=== PATIENT | male | born 1975 | race African-American/Black ===

== ENCOUNTER 2017-06-19 17:30 | Emergency (ER) | payer OTHER ==
[~2017-06-19] VITALS: Ht 177.8 cm; Wt 95.5 kg
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
[2017-06-19 19:26] VITALS: BP 110/65; PULSE 75; RESP 20; O2SAT 97
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
== END 2017-06-19 20:13 | disposition home or self-care (01) ==
LOC: NEDAMB 17:30 → NEPD 20:13
DX: S39.012A Strain of muscle, fascia and tendon of lower back, initial encounter (principal); Z88.0 Allergy status to penicillin; V43.62XA Car passenger injured in collision with other type car in traffic accident, initial encounter
CPT/HCPCS: 72100; 99283

== ENCOUNTER 2017-09-05 07:39 | Emergency (ER) | payer SELFPAY ==
[~2017-09-05] VITALS: Ht 177.8 cm; Wt 95.0 kg
[2017-09-05 07:40] VITALS: BP 121/77; PULSE 76; RESP 15; TEMP 98.4; O2SAT 95
--- NOTE | 2017-09-05 08:47 | PD ---
HPI Chief Complaint: Head Injury Time Seen by Provider: 09:29 Travel History International Travel<30 days: No Contact w/Intl Traveler<30days: No Traveled to known affect area: No History of Present Illness HPI 41-year-old male presents to emergency department with head, neck, and low back pain after slipping in the shower last night. Patient states that he slipped on some soap in the tub and hit his head, neck, and back. States that he had a headache last night. Patient denies loss of consciousness, blurred vision, personality changes, nausea, vomiting, diarrhea, fever, chills. Patient also denies loss of bowel or bladder function, numbness, tingling, weakness, personal history of present cancer, IV drug use. Patient says that his low back pain is moderate, aching, midline, and increases when he moves his back. His neck pain is mild, aching, increases with movement. Has full range of motion of his neck. He is not taking anything to relieve his pain today. [facility] Past Medical History Medical History: Denies Significant Hx Diminished Hearing: No Immunizations Current: No Influenza Vaccination: No Past Surgical History Surgical History: No Previous Surgery Social History Alcohol Use: Yes (RARELY) Tobacco Use: No Substance Use: No Allergies-Medications (Allergen,Severity, Reaction): Coded Allergies: penicillin G (Unverified Allergy, Severe, CONVULSIONS, 09/05/17) Reported Meds & Prescriptions Reported Meds & Active Scripts Active No Active Prescriptions or Reported Medications Review of Systems Except as stated in HPI: all other systems reviewed are Neg Physical Exam Narrative GENERAL: Well-developed well-nourished in no apparent distress SKIN: Focused skin assessment warm/dry. HEAD: Atraumatic. Normocephalic. EYES: Pupils equal and round. No scleral icterus. No injection or drainage. NECK: Supple, nontender. No meningeal signs. Trachea midline. No JVD or lymphadenopathy. No midline tenderness. ENT: No nasal bleeding or discharge. Mucous membranes pink and moist. NECK: Trachea midline. No JVD. CARDIOVASCULAR: Regular rate and rhythm. No murmur appreciated. RESPIRATORY: No accessory muscle use. Clear to auscultation. Breath sounds equal bilaterally. GASTROINTESTINAL: Abdomen soft, non-tender, nondistended. Hepatic and splenic margins not palpable. MUSCULOSKELETAL: No obvious deformities. No clubbing. No cyanosis. No edema. BACK: No CVA tenderness. No rash. Point tenderness on palpation of the lumbar spine. NEUROLOGICAL: Awake and alert. No obvious cranial nerve deficits. Motor grossly within normal limits. Normal speech. PSYCHIATRIC: Appropriate mood and affect; insight and judgment normal. Data Data Last Documented VS Vital Signs Date Time Temp Pulse Resp B/P (MAP) Pulse Ox O2 Delivery O2 Flow Rate FiO2 09/05/17 09:47 09/05/17 07:40 98.4 76 15 95 Orders Orders Spine, Lumbar - Ltd (Ap & Lat) (09/05/17 ) Spine, Cervical - Ltd (Ap&Lat) (09/05/17 ) Ed Discharge Order (09/05/17 09:31) MDM Medical Decision Making Medical Screen Exam Complete: Yes Emergency Medical Condition: Yes Differential Diagnosis Neck sprain versus strain versus fracture Back sprain versus strain versus fracture Head contusion versus concussion versus fracture Narrative Course 41-year-old male presents to emergency department with head, neck, and low back pain after slipping in the shower last night. Patient states that he slipped on some soap in the tub and hit his head, neck, and back. States that he had a headache last night. Patient denies loss of consciousness, blurred vision, personality changes, nausea, vomiting, diarrhea, fever, chills. Patient also denies loss of bowel or bladder function, numbness, tingling, weakness, personal history of present cancer, IV drug use. Patient says that his low back pain is moderate, aching, midline, and increases when he moves his back. His neck pain is mild, aching, increases with movement. Has full range of motion of his neck. He is not taking anything to relieve his pain today. Physical exam findings: Neuro intact, TTP to lumbar region, no TTP to neck but pain with ROM. Used [place] head CT rules to defer head CT. Imaging studies: No acute process. Pt advised to use OTC motrin or tylenol for symptom relief. Pt to f/u with PCP within 2 days and return if symptoms persist or worsen. Pt understood and agreed with plan. Diagnosis Primary Impression: Head contusion Qualified Codes: S00.83XA - Contusion of other part of head, initial encounter Additional Impressions: Neck contusion Qualified Codes: S10.93XA - Contusion of unspecified part of neck, initial encounter Back contusion Qualified Codes: S20.229A - Contusion of unspecified back wall of thorax, initial encounter Referrals: Primary Care Physician Additional Instructions: Return to primary care physician within 2 days. If your symptoms persist or worsen or return to the emergency department Perform light stretches of the lower back and legs, and alternate heat and ice packs. If you develop increased pain, weakness, fever, chills, or bowel or bladder issues, return to the ED for further treatment and evaluation. Follow up with your primary care physician in 2-3 days. Scripts No Active Prescriptions or Reported Meds Disposition: 01 DISCHARGE HOME Condition: Stable Lynnette Tyler Sep 05, 2017 08:47
--- NOTE | 2017-09-05 09:17 | RADRPT ---
EXAM DATE/TIME: 09/05/2017 08:46 [facility] COMPARISON: No previous studies available for comparison. INDICATIONS : Neck and low back pain, fell in shower yesterday MEDICAL HISTORY : SURGICAL HISTORY : None. ENCOUNTER: Initial ACUITY: 1 day PAIN SCORE: 7/10 LOCATION: Bilateral neck and low back FINDINGS: Two projection examination was performed. There is normal alignment and curvature of the vertebral b odies down to the level of C7. No evidence of fracture or subluxation. Vertebral body height is lj ntained. The disc spaces are maintained. Mild anterior osteophytes are seen at C6-C7. The atlanto- axial articulation is intact. CONCLUSION: Negative, complete series may be of benefit if patient remains symptomatic. Tristian Peñaloza MD FACR on September 05, 2017 at 9:14 Board Certified Radiologist. This report was verified electronically.
--- NOTE | 2017-09-05 09:18 | RADRPT ---
EXAM DATE/TIME: 09/05/2017 08:54 [facility] COMPARISON: SPINE LUMBAR LTD (AP & LAT), June 19, 2017, 19:03. INDICATIONS : Neck and low back pain, fell in shower yesterday MEDICAL HISTORY : None. SURGICAL HISTORY : None. ENCOUNTER: Initial ACUITY: 1 day PAIN SCORE: 7/10 LOCATION: Bilateral neck and low back FINDINGS: Two view examination was performed. There are five non-rib bearing vertebral bodies. The vertebral bodies are in normal alignment without evidence of subluxation or scoliosis. The disc spaces are lj ntained. The pedicles are intact. Bony mineralization is normal. No fracture is identified. CONCLUSION: Negative acute process. Tristian Peñaloza MD FACR on September 05, 2017 at 9:15 Board Certified Radiologist. This report was verified electronically.
== END 2017-09-05 09:47 | disposition home or self-care (01) ==
LOC: NEPD 07:39
DX: S00.83XA Contusion of other part of head, initial encounter (principal); S10.93XA Contusion of unspecified part of neck, initial encounter; S20.229A Contusion of unspecified back wall of thorax, initial encounter; W18.2XXA Fall in (into) shower or empty bathtub, initial encounter; Y93.E1 Activity, personal bathing and showering
CPT/HCPCS: 72040; 72100; 99283

== ENCOUNTER 2017-09-24 10:21 | Emergency (ER) | payer SELFPAY ==
[~2017-09-24] VITALS: Ht 177.8 cm; Wt 95.0 kg
[2017-09-24 10:22] VITALS: BP 130/72; PULSE 88; RESP 16; TEMP 97.6; O2SAT 98
--- NOTE | 2017-09-24 11:57 | PD ---
HPI Chief Complaint: Fall Time Seen by Provider: 11:33 Travel History International Travel<30 days: No Contact w/Intl Traveler<30days: No Traveled to known affect area: No History of Present Illness HPI 41-year-old Afro-[place] male presents the emergency department status post slip and fall while walking on the street. Patient states he slipped on a wet curb after sprinklers came on, fell backwards hitting the posterior scalp. He is unsure if he had a loss of consciousness but reports that his friend thought he was out for a little while. The patient originally had some nausea and dizziness as well as on one episode of vomiting. Patient did have headache that was worse earlier but now is about a 6 out of 10. He is not requesting pain medication at this time. He has some mild neck tenderness as well. Patient denies any other injury. No tongue or tooth injury. He is allergic to penicillin. PFSH Past Medical History Medical History: Denies Significant Hx Diminished Hearing: No Immunizations Current: No Tetanus Vaccination: < 5 Years Influenza Vaccination: No Past Surgical History Surgical History: No Previous Surgery Social History Alcohol Use: Yes (RARELY) Tobacco Use: No Substance Use: No Allergies-Medications (Allergen,Severity, Reaction): Coded Allergies: penicillin G (Unverified Allergy, Severe, CONVULSIONS, 09/24/17) Reported Meds & Prescriptions Reported Meds & Active Scripts Active No Active Prescriptions or Reported Medications Review of Systems Except as stated in HPI: all other systems reviewed are Neg General / Constitutional: No: Fever Eyes: No: Visual changes HENT: No: Headaches Cardiovascular: No: Chest Pain or Discomfort Respiratory: No: Shortness of Breath Gastrointestinal: No: Abdominal Pain Genitourinary: No: Dysuria Musculoskeletal: No: Pain Skin: No Rash Neurologic: No: Weakness Psychiatric: No: Depression Endocrine: No: Polydipsia Hematologic/Lymphatic: No: Easy Bruising Physical Exam Narrative GENERAL: Patient appears in no acute distress. SKIN: Warm and dry. Normal color. Normal turgor. There is no open wounds or abrasions HEAD:. Normocephalic. Patient has [id number] tenderness in the posterior scalp without signs of abrasion or laceration EYES: Pupils equal and round. No scleral icterus. No injection or drainage. ENT: No nasal bleeding or discharge. Mucous membranes pink and moist. No buccal membrane or tongue injury. No dental injury. Pharynx is clear. Airway is patent. NECK: Trachea midline. No significant bony tenderness or step-off. Mild soft tissue tenderness. Range of motion is full without tenderness. C-spine is cleared utilizing nexus criteria. CARDIOVASCULAR: Regular rate and rhythm. RESPIRATORY: No accessory muscle use. Clear to auscultation. Breath sounds equal bilaterally. GASTROINTESTINAL: Abdomen soft, non-tender, nondistended. Hepatic and splenic margins not palpable. MUSCULOSKELETAL: Extremities without clubbing, cyanosis, or edema. No obvious deformities. NEUROLOGICAL: Awake and alert. No obvious cranial nerve deficits. Motor grossly within normal limits. Five out of 5 muscle strength in the arms and legs. Normal speech. PSYCHIATRIC: Appropriate mood and affect; insight and judgment normal. Data Data Last Documented VS Vital Signs Date Time Temp Pulse Resp B/P (MAP) Pulse Ox O2 Delivery O2 Flow Rate FiO2 09/24/17 11:29 Room Air 09/24/17 10:22 97.6 88 16 130/72 (91) [address] Brain W/O Iv Contrast(Rout) (09/24/17 11:39) [facility] Medical Decision Making Medical Screen Exam Complete: Yes Emergency Medical Condition: Yes Differential Diagnosis Slipped and fall. Concussion. Intracranial bleed. Narrative Course CT scan of the brain is ordered. CT scan is read as negative per radiologist. Patient is to take Tylenol and ibuprofen as needed and follow-up as needed. Head injury warnings are reviewed with the patient. Diagnosis Primary Impression: Fall (on)(from) sidewalk curb, initial encounter Additional Impression: Head injury, closed, with brief LOC Referrals: Primary Care Physician Patient Instructions: Concussion (ED), General Instructions, Head Injury (DC) Additional Instructions: CT scan is read as negative per radiologist. Patient is to take Tylenol and ibuprofen as needed and follow-up as needed. Head injury warnings are reviewed with the patient. Med/Other Pt SpecificInfo: No Meds Exist/No RX given Scripts No Active Prescriptions or Reported Meds Disposition: 01 DISCHARGE HOME Condition: Stable Jose Eduardo Bhakta Sep 24, 2017 11:57
--- NOTE | 2017-09-24 12:11 | RADRPT ---
EXAM DATE/TIME: 09/24/2017 11:43 [facility] COMPARISON: No previous studies available for comparison. INDICATIONS : Trauma, fall today. RADIATION DOSE: 56.35 CTDIvol (mGy) MEDICAL HISTORY : None SURGICAL HISTORY : None. ENCOUNTER: Initial ACUITY: 1 day PAIN SCALE: 8/10 LOCATION: Bilateral head TECHNIQUE: Multiple contiguous axial images were obtained of the head. Using automated exposure control and adj ustment of the mA and/or kV according to patient size, radiation dose was kept as low as reasonably a chievable to obtain optimal diagnostic quality images. DICOM format image data is available electro nically for review and comparison. FINDINGS: CEREBRUM: The ventricles are normal for age. No evidence of midline shift, mass lesion, hemorrhage or acute in farction. No extra-axial fluid collections are seen. POSTERIOR FOSSA: The cerebellum and brainstem are intact. The 4th ventricle is midline. The cerebellopontine angle i s unremarkable. EXTRACRANIAL: The visualized portion of the orbits is intact. SKULL: The calvaria is intact. No evidence of skull fracture. CONCLUSION: Normal examination for a patient of this age. Jeff Damian MD on September 24, 2017 at 12:09 Board Certified Radiologist. This report was verified electronically.
== END 2017-09-24 12:48 | disposition home or self-care (01) ==
LOC: NEPC 10:21
DX: S06.9X1A Unspecified intracranial injury with loss of consciousness of 30 minutes or less, initial encounter (principal); W01.198A Fall on same level from slipping, tripping and stumbling with subsequent striking against other object, initial encounter; Y93.01 Activity, walking, marching and hiking; Y92.410 Unspecified street and highway as the place of occurrence of the external cause
CPT/HCPCS: 70450; 99284

== ENCOUNTER 2017-09-28 20:42 | Emergency (ER) | payer SELFPAY ==
[2017-09-28 20:44] VITALS: BP 148/87; PULSE 87; RESP 16; TEMP 97.9; O2SAT 98
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
[2017-09-29 00:09] VITALS: BP 115/76; PULSE 78; RESP 16; O2SAT 98
--- NOTE | 2017-09-29 01:53 | PD ---
HPI Chief Complaint: Head Injury Time Seen by Provider: 00:16 Travel History International Travel<30 days: No Contact w/Intl Traveler<30days: No Traveled to known affect area: No History of Present Illness HPI pt dropped a 5 lbs weight that slipped off the bar of bench press bar- 5 lbs hit him in the left religion area . Now blood in the ear canal and pain, No vertigo , no visual changes took nothing for the pain , the event happened 3 hrs prior to presentation in ER . When he saw blood he decide to come to see MD . Denies coagulopathy Hx , pain localized to left ear area , no radiation , it is a dull pressure like pain PFSH Past Medical History Medical History: Denies Significant Hx Diminished Hearing: No Immunizations Current: No Influenza Vaccination: No Past Surgical History Surgical History: No Previous Surgery Social History Alcohol Use: Yes (RARELY) Tobacco Use: No Substance Use: No Allergies-Medications (Allergen,Severity, Reaction): Coded Allergies: penicillin G (Unverified Allergy, Severe, CONVULSIONS, 09/29/17) Reported Meds & Prescriptions Reported Meds & Active Scripts Active Tramadol (Tramadol HCl) 50 Mg Tab 50 Mg PO Q4H PRN Ibuprofen 600 Mg Tab 600 Mg PO Q6H PRN Clindamycin (Clindamycin HCl) 150 Mg Cap 150 Mg PO Q6H Review of Systems Except as stated in HPI: all other systems reviewed are Neg HENT: Positive: Earache, Other (blood in external left ear canal) Physical Exam Narrative GENERAL: no apparent distress , no swelling to his face SKIN: Warm and dry. HEAD: Atraumatic. Normocephalic. EYES: Pupils equal and round. No scleral icterus. No injection or drainage. ENT: left external canal has Bright red blood from the wall of external canal , I placed q-tip into canal to remove blood , then I placed a white kleenex into the canal to look for a halo sign to look for CSF mixed with blood .There was no sign of halo below the blood on tip of the Kleenex tissue. NECK: Trachea midline. No JVD. CARDIOVASCULAR: Regular rate and rhythm. RESPIRATORY: No accessory muscle use. Clear to auscultation. Breath sounds equal bilaterally. GASTROINTESTINAL: Abdomen soft, non-tender, nondistended. Hepatic and splenic margins not palpable. MUSCULOSKELETAL: Extremities without clubbing, cyanosis, or edema. No obvious deformities. NEUROLOGICAL: Awake and alert. No obvious cranial nerve deficits. Motor grossly within normal limits. Five out of 5 muscle strength in the arms and legs. Normal speech. PSYCHIATRIC: Appropriate mood and affect; insight and judgment normal. Data Data Last Documented VS Vital Signs Date Time Temp Pulse Resp B/P (MAP) Pulse Ox O2 Delivery O2 Flow Rate FiO2 09/29/17 02:06 09/29/17 00:09 78 16 98 Room Air 09/28/17 20:[address] Brain W/O Iv Contrast(Rout) (09/28/17 ) Clindamycin (Cleocin) (09/29/17 02:00) Acetaminophen (Tylenol) (09/29/17 02:00) Ed Discharge Order (09/29/17 01:59) [facility] Medical Decision Making Medical Screen Exam Complete: Yes Emergency Medical Condition: Yes Differential Diagnosis Ear canal trauma , vs bleedng from temporal bone fracture and csf leak, Narrative Course I reviewed CT reading with the Radiologist to focus on the left temoral bone and ear canal , he feels there is no sign of temporal bone fracture, I placed Tissue into the blood from the Left external canal to look for a Halo sign of clear CSF around the Bright blood. there is no halo sign and only bright red blood obn the tissue . I place patient on clindamycin prophylaxis for 5 days . and motrin and tramdol for pain Diagnosis Primary Impression: Ear ache Additional Impression: Head injury Patient Instructions: Earache (ED), General Instructions, Head Injury (ED) Scripts Tramadol (Tramadol) 50 Mg Tab 50 MG PO Q4H Y for PAIN, #6 TAB 0 Refills Prov: Benny Graham MD 09/29/17 Ibuprofen (Ibuprofen) 600 Mg Tab 600 MG PO Q6H Y for PAIN, #20 TAB 0 Refills Prov: Benny Graham MD 09/29/17 Clindamycin (Clindamycin) 150 Mg Cap 150 MG PO Q6H for Infection, #20 CAP 0 Refills Prov: Benny Graham MD 09/29/17 Disposition: 01 DISCHARGE HOME Condition: Good Benny Graham MD Sep 29, 2017 01:53
[2017-09-29] MEDS ORDERED: CLIN150C14 PO (01:57)
[2017-09-29] MEDS ORDERED: IBUP-232 PO (01:57)
[2017-09-29] MEDS ORDERED: TRAM50TA PO (01:58)
[2017-09-29] MEDS ORDERED: CLINDAMYCIN 150 MG CAP PO ONE (02:00)
[2017-09-29] MEDS ORDERED: ACETAMINOPHEN 500 MG CPLT PO ONE (02:00)
== END 2017-09-29 02:34 | disposition home or self-care (01) ==
LOC: NEPC 20:42
DX: S09.90XA Unspecified injury of head, initial encounter (principal); H92.02 Otalgia, left ear; W20.8XXA Other cause of strike by thrown, projected or falling object, initial encounter; Y93.79 Activity, other specified sports and athletics; Y92.39 Other specified sports and athletic area as the place of occurrence of the external cause
CPT/HCPCS: 70450

== ENCOUNTER 2017-11-22 19:57 | Emergency (ER) | payer SELFPAY ==
[~2017-11-22 19:57] MED LIST: CLIN150C14 PO; IBUP-232 PO; TRAM50TA PO
[2017-11-22 20:36] VITALS: BP 103/66; PULSE 80; RESP 20; TEMP 97; O2SAT 98
--- NOTE | 2017-11-22 22:53 | PD ---
HPI Chief Complaint: ENT Complaint Time Seen by Provider: 22:31 Travel History International Travel<30 days: No Contact w/Intl Traveler<30days: No Traveled to known affect area: No History of Present Illness HPI 41yo M with no significant PMH presents to the ED with c/o possible foreign body in right ear. Said he had his head phones in his ear and the metal piece may have been in there. However, said it may have may out as well but he thinks that it scratch his ear if it did come out. Pt wants to make sure. Denies any fever, chest pain, sob, n/v, abdominal pain, focal weakness or numbness. PFSH Past Medical History Medical History: Denies Significant Hx Diminished Hearing: No Immunizations Current: No Tetanus Vaccination: < 5 Years Influenza Vaccination: No Past Surgical History Surgical History: No Previous Surgery Social History Alcohol Use: No Tobacco Use: No Substance Use: No Allergies-Medications (Allergen,Severity, Reaction): Coded Allergies: penicillin G (Unverified Allergy, Severe, CONVULSIONS, 11/22/17) Reported Meds & Prescriptions Reported Meds & Active Scripts Active No Active Prescriptions or Reported Medications Review of Systems Except as stated in HPI: all other systems reviewed are Neg Physical Exam Narrative GENERAL: 41yo M not in distress. SKIN: Focused skin assessment warm/dry. ENT: Right ear: TM wnl. No foreign body. No bleeding. Left ear: TM wnl. NECK: Trachea midline. No JVD. CARDIOVASCULAR: Regular rate and rhythm. No murmur appreciated. RESPIRATORY: No accessory muscle use. Clear to auscultation. Breath sounds equal bilaterally. GASTROINTESTINAL: Abdomen soft, non-tender, nondistended. MUSCULOSKELETAL: No obvious deformities. No clubbing. No cyanosis. No edema. NEUROLOGICAL: Awake and alert. No obvious cranial nerve deficits. Motor grossly within normal limits. Normal speech. PSYCHIATRIC: Appropriate mood and affect; insight and judgment normal. Data Data Last Documented VS Vital Signs Date Time Temp Pulse Resp B/P (MAP) Pulse Ox O2 Delivery O2 Flow Rate FiO2 11/22/17 20:36 97.0 80 20 103/66 (78) 98 MDM Medical Decision Making Medical Screen Exam Complete: Yes Emergency Medical Condition: Yes Differential Diagnosis Possible foreign body in right ear Narrative Course 41yo M here for evaluation for possible foreign body in right ear. There is no foreign body seen on exam. Pt said he does not want anything medication for pain. Return precautions given. Diagnosis Primary Impression: Routine medical exam Patient Instructions: General Instructions Departure Forms: Tests/Procedures Additional Instructions: Please follow up with your primary care physician in 3-7 days. Return to the ED if symptoms worsen. Med/Other Pt SpecificInfo: No Change to Meds Scripts No Active Prescriptions or Reported Meds Disposition: 01 DISCHARGE HOME Condition: Stable Anna Arroyo DO Nov 22, 2017 22:52
== END 2017-11-22 23:08 | disposition home or self-care (01) ==
LOC: PHED 19:57
DX: Z03.89 Encounter for observation for other suspected diseases and conditions ruled out (principal)
CPT/HCPCS: 99281

== ENCOUNTER 2017-11-24 19:15 | Emergency (ER) | payer SELFPAY ==
[~2017-11-24] VITALS: Ht 165.1 cm; Wt 75.0 kg
[2017-11-24 19:17] VITALS: BP 137/81; PULSE 85; RESP 16; TEMP 98; O2SAT 99
--- NOTE | 2017-11-24 20:03 | PD ---
HPI Chief Complaint: Fall Time Seen by Provider: 19:55 Travel History International Travel<30 days: No Contact w/Intl Traveler<30days: No Traveled to known affect area: No History of Present Illness HPI 41-year-old Afro[place] male presents the emergency department status post slip and fall 45 minutes prior to arrival. She states she slipped off a curb and hit the back of his head. He denies loss of consciousness. He does have a mild headache of 6 out of 10. He is concerned that she's had some bright spots in his vision. He denies nausea, vomiting, or other symptoms. He has no open wound or abrasions. He denies neck pain. He has no numbness or tingling in the upper extremities. He denies any other injury. He is allergic to penicillin. [facility] Past Medical History Diminished Hearing: No Immunizations Current: No Social History Alcohol Use: No Tobacco Use: No Substance Use: No Allergies-Medications (Allergen,Severity, Reaction): Coded Allergies: penicillin G (Unverified Allergy, Severe, CONVULSIONS, 11/24/17) Reported Meds & Prescriptions Reported Meds & Active Scripts Active No Active Prescriptions or Reported Medications Review of Systems Except as stated in HPI: all other systems reviewed are Neg General / Constitutional: No: Fever Eyes: Positive: Other, No: Diploplia, Blurred Vision, Photophobia, Drainage, Redness, Foreign Body Sensation, Pain, Tearing, Blind Spots, Visual changes, Blindness HENT: Positive: Headaches (see history of present illness), No: Vertigo ( 6 out of 10.), Lightheadedness, Sore Throat, Rhinitis, Rhinorrhea, Congestion, Nosebleed, Neck Stiffness, Neck Pain, Dental Difficulties, Earache Cardiovascular: No: Chest Pain or Discomfort Respiratory: No: Cough, Shortness of Breath Gastrointestinal: No: Nausea, Vomiting, Diarrhea, Abdominal Pain Genitourinary: No: Dysuria Musculoskeletal: No: Pain Skin: No Rash Neurologic: No: Weakness Psychiatric: No: Depression Endocrine: No: Polydipsia Hematologic/Lymphatic: No: Easy Bruising Physical Exam Narrative GENERAL: Patient is in no acute distress. SKIN: Warm and dry. Normal color. Normal turgor. There is no abrasions or wounds. HEAD: Patient complains of mild tenderness with palpation of the posterior occiput. There is no significant swelling or bony tenderness. Normocephalic. EYES: Pupils equal and round. No scleral icterus. No injection or drainage. Ocular motions are full and equal bilaterally without nystagmus. ENT: No nasal bleeding or discharge. Mucous membranes pink and moist. No dental injury. Posterior pharynx is unremarkable. Airway is patent TMs are clear bilaterally. NECK: Trachea midline. No bony tenderness or step-off. Range of motion is full and nontender. CARDIOVASCULAR: Regular rate and rhythm. RESPIRATORY: No accessory muscle use. Clear to auscultation. Breath sounds equal bilaterally. GASTROINTESTINAL: Abdomen soft, non-tender, nondistended. Hepatic and splenic margins not palpable. MUSCULOSKELETAL: Extremities without clubbing, cyanosis, or edema. No obvious deformities. Range of motion in both upper and lower extremities are full and within normal limits. NEUROLOGICAL: Awake and alert. No obvious cranial nerve deficits. Motor grossly within normal limits. Five out of 5 muscle strength in the arms and legs. Normal speech. Normal nose finger testing. PSYCHIATRIC: Appropriate mood and affect; insight and judgment normal. Data Data Last Documented VS Vital Signs Date Time Temp Pulse Resp B/P (MAP) Pulse Ox O2 Delivery O2 Flow Rate FiO2 11/24/17 19:17 98.0 85 16 137/81 (99) 99 Room Air MDM Medical Decision Making Medical Screen Exam Complete: Yes Emergency Medical Condition: Yes Differential Diagnosis Supple fall. Scalp contusion. Head injury. Narrative Course A medical screening exam was performed: At the time of evaluation the presenting medical condition was determined not to be of an emergent nature. The patient was given the option of receiving additional care, but declined. Patient was given options for additional community resources from which to obtain care. The Patient Has Been advised to seek medical attention for their presenting complaint. The patient has been advised to return to the ER at any time if an emergent condition develops. Scripts No Active Prescriptions or Reported Meds Condition: Stable Jose Eduardo Bhakta Nov 24, 2017 20:03
== END 2017-11-24 20:11 | disposition left against medical advice (07) ==
LOC: NEPK 19:15
DX: S09.90XA Unspecified injury of head, initial encounter (principal)
CPT/HCPCS: 99281

== ENCOUNTER 2017-12-07 18:26 | Emergency (ER) | payer SELFPAY ==
[~2017-12-07] VITALS: Ht 177.8 cm; Wt 97.5 kg
[2017-12-07 18:27] VITALS: BP 127/72; PULSE 84; RESP 18; TEMP 98.2; O2SAT 98
--- NOTE | 2017-12-07 19:43 | PD ---
HPI Chief Complaint: Fall Time Seen by Provider: 19:14 Travel History International Travel<30 days: No Contact w/Intl Traveler<30days: No Traveled to known affect area: No History of Present Illness HPI 42-year-old male that presents to the ED for evaluation of injury to his head. Per patient is happened about 45 minutes before coming. Per patient he was on a curb and he was cutting a see some friends when he accidentally fell. Per patient and his friends told him that he might have lost consciousness. Unclear as to the length of time as patient himself does not know what per patient he was possibly for a minute. Per patient he vomited after the accident. He does not remember much of it and states that he only has pain on the back of his head. He denies any other injury. No blurry vision or double vision. Normal leg pain. No back or neck pain. No urinary or bowel movement issues. States that he has an allergy to penicillin. States that his pain is 5 out of 10. No other medical issues at this time. PFSH Past Medical History Medical History: Denies Significant Hx Diminished Hearing: No Immunizations Current: Yes Past Surgical History Surgical History: No Previous Surgery Social History Alcohol Use: No Tobacco Use: No Substance Use: No Allergies-Medications (Allergen,Severity, Reaction): Coded Allergies: penicillin G (Unverified Allergy, Severe, CONVULSIONS, 11/24/17) Reported Meds & Prescriptions Reported Meds & Active Scripts Active No Active Prescriptions or Reported Medications Review of Systems Except as stated in HPI: all other systems reviewed are Neg Physical Exam Narrative GENERAL: SKIN: Warm and dry. HEAD: Atraumatic. Normocephalic. EYES: Pupils equal and round 2mm reactive to light and accomodation. No scleral icterus. No injection or drainage. ENT: No nasal bleeding or discharge. Mucous membranes pink and moist. NECK: Trachea midline. No JVD. CARDIOVASCULAR: Regular rate and rhythm. RESPIRATORY: No accessory muscle use. Clear to auscultation. Breath sounds equal bilaterally. GASTROINTESTINAL: Abdomen soft, non-tender, nondistended. Hepatic and splenic margins not palpable. MUSCULOSKELETAL: Extremities without clubbing, cyanosis, or edema. No obvious deformities. Full range of motion of the upper and lower extremities bilaterally. 2+ pulses bilaterally. No lumbar, thoracic, cervical spine tenderness to palpation. Sensation intact bilaterally. Gait normal. NEUROLOGICAL: Awake and alert. No obvious cranial nerve deficits. Motor grossly within normal limits. Five out of 5 muscle strength in the arms and legs. Normal speech. PSYCHIATRIC: Appropriate mood and affect; insight and judgment normal. Data Data Last Documented VS Vital Signs Date Time Temp Pulse Resp B/P (MAP) Pulse Ox O2 Delivery O2 Flow Rate FiO2 12/07/17 18:27 98.2 84 18 127/72 (90) 98 Room Air Orders Orders Ct Brain W/O Iv Contrast(Rout) (12/07/17 ) MDM Medical Decision Making Medical Screen Exam Complete: Yes Emergency Medical Condition: Yes Medical Record Reviewed: Yes Interpretation(s) CT of the head was negative for acute disease. Differential Diagnosis Head injury versus concussion versus minor head injury versus head bleed versus fracture Narrative Course 42-year-old male that presents to the ED for evaluation of head injury. Patient was properly examined and was found to have signs and symptoms consistent appears to be minor head injury. CT was ordered by triage. CT was done and was negative for acute disease. Patient was reassured. At this time I recommend trial of anti-inflammatories and follow-up with PCP. See ED worsening symptoms. Ice or warm compresses as needed. Diagnosis Primary Impression: Head injury, acute Qualified Codes: S09.90XA - Unspecified injury of head, initial encounter Patient Instructions: General Instructions Additional Instructions: Take medications as prescribed. Follow-up with PCP. See ED for any worsening symptoms. Apply ice or heat as needed for pain Med/Other Pt SpecificInfo: Prescription(s) given Scripts No Active Prescriptions or Reported Meds Disposition: 01 DISCHARGE HOME Condition: Stable Ernesto Maldonado Dec 07, 2017 19:43
--- NOTE | 2017-12-07 19:44 | RADRPT ---
EXAM DATE/TIME: 12/07/2017 19:37 [facility] COMPARISON: CT BRAIN W/O CONTRAST, September 28, 2017, 22:58. INDICATIONS : Trauma; fall RADIATION DOSE: 45.54 CTDIvol (mGy) MEDICAL HISTORY : None SURGICAL HISTORY : None. ENCOUNTER: Initial ACUITY: 1 day PAIN SCALE: 4/10 LOCATION: cranial TECHNIQUE: Multiple contiguous axial images were obtained of the head. Using automated exposure control and adj ustment of the mA and/or kV according to patient size, radiation dose was kept as low as reasonably a chievable to obtain optimal diagnostic quality images. DICOM format image data is available electro nically for review and comparison. FINDINGS: CEREBRUM: The ventricles are normal for age. No evidence of midline shift, mass lesion, hemorrhage or acute in farction. No extra-axial fluid collections are seen. POSTERIOR FOSSA: The cerebellum and brainstem are intact. The 4th ventricle is midline. The cerebellopontine angle i s unremarkable. EXTRACRANIAL: The visualized portion of the orbits is intact. SKULL: The calvaria is intact. No evidence of skull fracture. CONCLUSION: Normal examination for a patient of this age. No significant change has occurred. Roderick Elizabeth MD on December 07, 2017 at 19:42 Board Certified Radiologist. This report was verified electronically.
[2017-12-07] MEDS ORDERED: DICL75TA PO (19:45)
== END 2017-12-07 20:48 | disposition home or self-care (01) ==
LOC: NEPK 18:26
DX: S09.90XA Unspecified injury of head, initial encounter (principal); W10.1XXA Fall (on)(from) sidewalk curb, initial encounter
CPT/HCPCS: 70450; 99283

== ENCOUNTER 2017-12-17 17:38 | Emergency (ER) | payer SELFPAY ==
[~2017-12-17] VITALS: Ht 177.8 cm; Wt 100.0 kg
[~2017-12-17 17:38] MED LIST changes: -CLIN150C14 PO; +DICL75TA PO; -IBUP-232 PO; -TRAM50TA PO
[2017-12-17 17:39] VITALS: BP 128/79; PULSE 76; RESP 16; TEMP 96.5; O2SAT 97
--- NOTE | 2017-12-17 19:46 | PD ---
HPI Chief Complaint: Syncope/Near-Syncope Time Seen by Provider: 19:35 Travel History International Travel<30 days: No Contact w/Intl Traveler<30days: No Traveled to known affect area: No History of Present Illness HPI 42-year-old male complains of headache and frequent fall. Patient states that his has feeling unsteady recently and has frequent fall. Patient was seen in emergency room about 10 days ago after he fell and hit his head. CT scan of the brain was negative for acute pathology. Patient states that he fell again today. Patient states that he hit the back of his head. Patient is not sure of loss of consciousness. Patient complained of sharp pain localized to the back of the head. Patient denies any visual change. Patient denies any neck pain. Patient denies any chest pain or shortness of breath. Patient denies abdominal pain. Patient denies any focal weakness or numbness of the extremity. PFSH Past Medical History Diminished Hearing: No Immunizations Current: Yes Social History Alcohol Use: No Tobacco Use: No Substance Use: No Allergies-Medications (Allergen,Severity, Reaction): Coded Allergies: penicillin G (Unverified Allergy, Severe, CONVULSIONS, 11/24/17) Reported Meds & Prescriptions Reported Meds & Active Scripts Active No Active Prescriptions or Reported Medications Review of Systems General / Constitutional: No: Fever Eyes: No: Visual changes HENT: Positive: Headaches Cardiovascular: No: Chest Pain or Discomfort Respiratory: No: Shortness of Breath Gastrointestinal: No: Abdominal Pain Genitourinary: No: Dysuria Musculoskeletal: No: Pain Skin: No Rash Neurologic: No: Weakness Psychiatric: No: Depression Endocrine: No: Polydipsia Hematologic/Lymphatic: No: Easy Bruising Physical Exam Narrative GENERAL: Well-nourished, well-developed patient. SKIN: Focused skin assessment warm/dry. HEAD: Normocephalic. Mild tenderness on palpation possible to area of the scalp. EYES: No scleral icterus. No injection or drainage. Pupils 2 mm equal reactive. NECK: Supple, trachea midline. No JVD or lymphadenopathy. No tenderness on palpation of the neck. CARDIOVASCULAR: Regular rate and rhythm without murmurs, gallops, or rubs. RESPIRATORY: Breath sounds equal bilaterally. No accessory muscle use. GASTROINTESTINAL: Abdomen soft, non-tender, nondistended. MUSCULOSKELETAL: No cyanosis, or edema. BACK: Nontender without obvious deformity. No CVA tenderness. Neurologic exam: Patient is awake and alert and oriented 3. No obvious focal neurological deficit. Data Data Last Documented VS Vital Signs Date Time Temp Pulse Resp B/P (MAP) Pulse Ox O2 Delivery O2 Flow Rate FiO2 12/17/17 17:39 96.5 76 16 128/79 (95) 97 Orders Orders Complete Blood Count With Diff (12/17/17 19:41) Basic Metabolic Panel (Bmp) (12/17/17 19:41) Thyroid Stimulating Hormone (12/17/17 19:41) Ct Brain W/O Iv Contrast(Rout) (12/17/17 19:41) Iv Access Insert/Monitor (12/17/17 19:41) Labs Laboratory Tests Test 12/17/17 19:55 White Blood Count 7.5 TH/MM3 Red Blood Count 5.03 MIL/MM3 Hemoglobin 15.1 GM/DL Hematocrit 44.3 % Mean Corpuscular Volume 88.2 FL Mean Corpuscular Hemoglobin 30.1 PG Mean Corpuscular Hemoglobin Concent 34.1 % Red Cell Distribution Width 13.2 % Platelet Count 195 TH/MM3 Mean Platelet Volume 9.1 FL Neutrophils (%) (Auto) 48.6 % Lymphocytes (%) (Auto) 42.2 % Monocytes (%) (Auto) 8.1 % Eosinophils (%) (Auto) 0.7 % Basophils (%) (Auto) 0.4 % Neutrophils # (Auto) 3.6 TH/MM3 Lymphocytes # (Auto) 3.2 TH/MM3 Monocytes # (Auto) 0.6 TH/MM3 Eosinophils # (Auto) 0.1 TH/MM3 Basophils # (Auto) 0.0 TH/MM3 CBC Comment DIFF FINAL Differential Comment Blood Urea Nitrogen 11 MG/DL Creatinine 1.30 MG/DL Random Glucose 89 MG/DL Calcium Level 8.9 MG/DL Sodium Level 139 MEQ/L Potassium Level 3.6 MEQ/L Chloride Level 104 MEQ/L Carbon Dioxide Level 28.2 MEQ/L Anion Gap 7 MEQ/L Estimat Glomerular Filtration Rate 74 ML/MIN Thyroid Stimulating Hormone 3rd Gen 1.700 uIU/ML MDM Medical Decision Making Medical Screen Exam Complete: Yes Emergency Medical Condition: Yes Interpretation(s) [address] scan of the brain shows no acute pathology. Chronic changes. CBC within normal limits. 21:09 PM. BMP within normal limits. TSH normal. Differential Diagnosis Differential diagnosis including closed head injury, skull fracture, intracranial hemorrhage, electrolyte abnormality, dehydration, anemia Narrative Course 42-year-old male with frequent fall and head injury. Examination benign today. Diagnosis Primary Impression: Closed head injury Qualified Codes: S09.90XA - Unspecified injury of head, initial encounter Patient Instructions: General Instructions Additional Instructions: Head trauma instructions given. Tylenol for pain. Follow-up with personal physician. Return as needed. Med/Other Pt SpecificInfo: No Change to Meds Scripts No Active Prescriptions or Reported Meds Disposition: 01 DISCHARGE HOME Condition: Stable Nato Gustafson MD Dec 17, 2017 19:46
--- NOTE | 2017-12-17 20:12 | RADRPT ---
EXAM DATE/TIME: 12/17/2017 19:57 [facility] COMPARISON: CT BRAIN W/O CONTRAST, December 07, 2017, 19:37. INDICATIONS : Trauma, fall today. RADIATION DOSE: 56.35 CTDIvol (mGy) MEDICAL HISTORY : None SURGICAL HISTORY : None. ENCOUNTER: Initial ACUITY: 1 day PAIN SCALE: 7/10 LOCATION: Bilateral head TECHNIQUE: Multiple contiguous axial images were obtained of the head. Using automated exposure control and adj ustment of the mA and/or kV according to patient size, radiation dose was kept as low as reasonably a chievable to obtain optimal diagnostic quality images. DICOM format image data is available electro nically for review and comparison. FINDINGS: CEREBRUM: The ventricles are normal for age. No evidence of midline shift, mass lesion, hemorrhage or acute in farction. No extra-axial fluid collections are seen. POSTERIOR FOSSA: The cerebellum and brainstem are intact. The 4th ventricle is midline. The cerebellopontine angle i s unremarkable. EXTRACRANIAL: The visualized portion of the orbits is intact. SKULL: The calvaria is intact. No evidence of skull fracture. CONCLUSION: Stable noncontrast head CT. No acute intracranial abnormality is identified. Gómez Lou MD on December 17, 2017 at 20:09 Board Certified Radiologist. This report was verified electronically.
[2017-12-17 20:21] LABS: AUTOMATED NEUTROPHIL # 3.6 TH/MM3 (1.8-7.7); BASOPHIL % 0.4 % (0.0-2.0); EOSINOPHIL # 0.1 TH/MM3 (0-0.4); EOSINOPHIL % 0.7 % (0.0-4.0); HEMATOCRIT 44.3 % (39.0-51.0); HEMOGLOBIN 15.1 GM/DL (13.0-17.0); LYMPH % 42.2 % (9.0-44.0); LYMPHOCYTE # 3.2 TH/MM3 (1.0-4.8); MEAN CELL VOLUME 88.2 FL (80.0-100.0); MEAN CORPUSCULAR HEMOGLOBIN 30.1 PG (27.0-34.0); MEAN CORPUSCULAR HGB CONC 34.1 % (32.0-36.0); MEAN PLATELET VOLUME 9.1 FL (7.0-11.0); MONO % 8.1 % (0.0-8.0); MONOCYTE # 0.6 TH/MM3 (0-0.9); NEUT % 48.6 % (16.0-70.0); PLATELET COUNT 195 TH/MM3 (150-450); RED BLOOD COUNT 5.03 MIL/MM3 (4.50-5.90); RED CELL DISTRIBUTION WIDTH 13.2 % (11.6-17.2); WHITE BLOOD COUNT 7.5 TH/MM3 (4.0-11.0)
[2017-12-17 20:59] LABS: BICARBONATE 28.2 MEQ/L (21.0-32.0); CALCIUM 8.9 MG/DL (8.5-10.1); CREATININE 1.3 MG/DL (0.60-1.30)
== END 2017-12-17 21:25 | disposition home or self-care (01) ==
LOC: NEPD 17:38
DX: S09.90XA Unspecified injury of head, initial encounter (principal); W18.09XA Striking against other object with subsequent fall, initial encounter; Z88.0 Allergy status to penicillin
CPT/HCPCS: 70450; 80048; 84443; 85025; 99283